=== PATIENT | female | born 1960 | race Caucasian/White ===

== ENCOUNTER 2023-09-21 19:05 | Emergency (ER) | payer BC, SELFPAY ==
[2023-09-21] VITALS (19 sets, daily range): BP systolic 134–158; BP diastolic 60–98; PULSE 64–104; RESP 0–26; TEMP 36.9; O2SAT 93–100
--- NOTE | 2023-09-21 19:00 | RT.EKG_ITS ---
APPROVED REPORT Exam: Resting ECG Reason for Exam: chest pain Patient Location: E HR:70 bpm ECG Measurements Heart Rate 70 AXIS MS 148 P 58 QRSd 75 QRS 57 QT 399 T 47 QTc 432 Conclusion Sinus rhythm...normal P axis, V-rate 60- 99
[2023-09-21] MEDS: Normal Saline 1,000 ML 1000 ML IV (19:40)
[2023-09-21 19:41] LABS: Abs Immature Grans 0.01 10^3/uL (0.0-0.06); Absolute Basophil Count 0.02 10^3/uL (0.0-0.2); Absolute Lymphocyte Count 0.99 10^3/uL (1.2-3.4); Absolute Neutrophil Count 4.42 10^3/uL (1.2-6.7); Basophils % 0.3 %; Eosinophils % 1.7 %; HCT 42.4 % (36.0-46.0); HGB 14.4 g/dL (11.2-15.7); Immature Grans % 0.2 %; Lymphocytes % 16.4 %; MCH 30.6 pg (27.0-33.0); MCV 90 fL (80-95); Monocytes % 8.3 %; Neutrophils % 73.1 %; RBC 4.71 10^6/uL (3.93-5.22); RDW-SD 42.5 fL; WBC 6.04 10^3/uL (4.4-10.8)
--- NOTE | 2023-09-21 19:41 | W.ED.GENAD ---
Discharge Plan Disposition Patient Disposition: Home Condition: Stable Discharge Details Clinical Impression: Nausea & vomiting, Dizziness Primary Care Provider: Adelaida,Local ED Provider: Janes Mendez [place] Meds and New Rx's Prescriptions: New ondansetron 4 mg tablet,disintegrating 4 mg PO Q8H PRN (Reason: nausea and vomiting) Qty: 30 0RF meclizine 25 mg tablet 25 mg PO TID PRN (Reason: dizziness) Qty: 30 0RF Continued levothyroxine .ROUTE pantoprazole PO escitalopram oxalate .ROUTE Discharge Instructions Additional Instructions: Follow-up with your primary care provider or express care this week if you are still having symptoms If you feel more ill, have persistent vomiting or high fevers return to the emergency department for reevaluation HPI General Date/Time Provider Initiated Documentation: 09/21/23 19:11. Limitations to Documentation: no limitations. Information obtained by: patient. History of Present Illness 63 year old F presents to the emergency department with the chief complaint of dizziness, described as moderate, Patient started experiencing this day(s) (2) and it has been constant. No relieving factors improve symptom(s), No exacerbating factors reported . Patient notes nausea/vomiting; denies chest pain and shortness of breath. Patient did receive the following treatments prior to arrival, none Related Data Home Medications ?Medication ?Instructions ?Recorded ?Confirmed escitalopram oxalate .ROUTE 09/21/23 levothyroxine .ROUTE 09/21/23 meclizine 25 mg tablet 25 mg PO TID PRN dizziness #30 tabs 09/21/23 ondansetron 4 mg disintegrating 4 mg PO Q8H PRN nausea and 09/21/23 tablet vomiting #30 tabs pantoprazole PO 09/21/23 Previous Rx's ?Medication ?Instructions ?Recorded meclizine 25 mg tablet 25 mg PO TID PRN dizziness #30 tabs 09/21/23 ondansetron 4 mg disintegrating 4 mg PO Q8H PRN nausea and 09/21/23 tablet vomiting #30 tabs Allergies Allergy/AdvReac Type Severity Reaction Status Date / Time No Known Allergies Allergy Unverified 09/21/23 19:10 General Stated Complaint: Nausea/Vomit/Diar ROSEMARIE: 3 Review of Systems All systems reviewed & are unremarkable except as noted in HPI and below Constitutional Constitutional: Denies chills, Denies fever(s) and Denies weakness Cardiovascular Cardiovascular: Denies chest pain and Denies dyspnea Respiratory Respiratory: Denies cough and Denies dyspnea Gastrointestinal Gastrointestinal: Denies abdominal pain, Reports nausea and Reports vomiting Musculoskeletal Musculoskeletal: Denies joint swelling Integumentary/Breasts Skin/Breast: Denies rash Neurologic Neurologic: Denies weakness Exam Const General: no acute distress Orientation: alert HENMT Head: normal to inspection Ears: external ears normal General nose exam: external nose normal Mouth: moist mucous membranes Eyes General: appearance normal, both eyes and all related structures Neck Neck: normal visual inspection Resp Effort & Inspection: normal respiratory effort and able to speak in complete sentences Auscultation: clear to auscultation bilaterally Cardio Jugular venous pressure: no JVD Rate: regular rate Heart Sounds: no murmurs GI Palpation: soft and nontender Skin General skin exam: no rashes or lesions noted Neuro General: patient alert and patient oriented x3 Extrem General: normal to inspection Psych Mental Status: mental status grossly normal Course Vital Signs Vital signs: Vital Signs Temperature 36.9 C 09/21/23 19:06 Pulse 84 09/21/23 19:06 Respiratory Rate 18 09/21/23 19:06 Blood Pressure 158/98 H 09/21/23 19:06 Pulse Oximetry 99 09/21/23 19:06 Temperature 36.9 C 09/21/23 19:06 Temperature Source Temporal Artery Scan 09/21/23 19:06 Pulse 84 09/21/23 19:06 Respiratory Rate 18 09/21/23 19:06 Respiratory Effort Normal, Non-Labored 09/21/23 19:10 Blood Pressure 158/98 H 09/21/23 19:06 Blood Pressure Position Sitting 09/21/23 19:06 Pulse Oximetry 99 09/21/23 19:06 Oxygen Delivery Method Room Air 09/21/23 19:06 Oxygen Flow Rate 0 09/21/23 19:06 Medical Decision Making 63-year-old female comes in with 2 days of feeling dizzy and having nausea and vomiting. She says 2 days ago she had some mild chest discomfort that resolved but then she developed dizziness and nausea vomiting. She has no pain but the last 2 days she has been throwing up persistently and having dizziness. She denies having any chest pain today, no fevers, no chills, no abdominal pain. She denies any neck stiffness, has a mild frontal headache which she says started today after throwing up persistently. She is alert and oriented x 4 on arrival speaking clearly. She has no focal motor or sensation deficits, cranial nerves II through XII are intact she does have some mild nystagmus when looking to the right in both eyes. Reassuring hints exam. Lungs are clear, soft nontender abdomen. Suspect she could have some vertigo which seems peripheral based on her exam no findings on exam to suggest central vertigo. TMs are normal. Will proceed with CBC, CMP, troponin given her chest pain 2 days ago. Will treat her symptoms with Zofran and meclizine and reassess. Patient feeling significantly better, tolerating p.o., labs unremarkable. Suspect peripheral vertigo, will provide as needed Zofran advised to follow-up with PCP and return precautions given Differential Diagnosis Differential Diagnosis: Dehydration, electrolyte abnormality, vertigo Lab Data Lab results reviewed: Yes I reviewed the patient's lab results. ECG Data Attestation: I personally reviewed and interpreted this ECG (s) as follows: Prior ECG tracings: not available for review Interpretation: Sinus rhythm, rate of 70, ND 148, no STEMI Quality:SDOH Health Related Social Needs: No Data to Display [facility] All Active Problems (Updated 09/21/23 @ 21:55 by Janes Mendez MD) Dizziness (Acute) Nausea & vomiting (Acute) Social History Smoking/Tobacco Use Status: Never Smoking risk assessment performed?: Yes Alcohol Intake: never Drug use: Never Substance use type: does not use
[2023-09-21] MEDS: Ondansetron 4 MG/2 ML VIAL IVP (19:42)
[2023-09-21] MEDS: Meclizine 25 MG TAB PO (20:00)
[2023-09-21 20:26] LABS: ALT 21 U/L (14-59); AST 18 U/L (15-37); Albumin 3.5 g/dL (3.4-5.0); Alkaline Phosphatase 79 U/L (46-116); Anion Gap 9.5 mmol/L (3-11); BUN 11 mg/dL (7-18); Bilirubin, Total 0.57 mg/dL (0.2-1.0); CO2 27.5 mmol/L (21.0-32.0); CREATININE 0.9 mg/dL (0.55-1.02); Calcium 8.8 mg/dL (8.5-10.1); Chloride 105 mmol/L (98-107); Estimated GFR 71.39 (mL/min/1.73m2); Glucose 99 mg/dL (74-106); Lipase 32 U/L (16-77); Magnesium 1.8 mg/dL (1.8-2.4); Potassium 3.7 mmol/L (3.5-5.1); Sodium 142 mmol/L (136-145); Total Protein 6.8 g/dL (6.4-8.2); Troponin I < 50 ng/L (< or =60)
[2023-09-21] MEDS: Prochlorperazine 10 MG/2 ML VIAL IVP (20:36)
[2023-09-21] MEDS: Normal Saline 50 ML 999 ML (21:10)
[2023-09-21] MEDS: Acetaminophen 500 MG TAB 1000 MG PO (21:22)
== END 2023-09-21 22:09 | disposition home or self-care (01) ==
PROVIDERS: Emergency Provider Emergency Medicine
DX: R11.2 Nausea with vomiting, unspecified (principal); R42 Dizziness and giddiness; R10.13 Epigastric pain
CPT/HCPCS: 80053; 83690; 93005; 96361; 96374; 96375; 99284; 83735; 84484; 85025; 93010; 99283; J0780; J2405